=== PATIENT | male | born 1950 | race Caucasian/White ===

== ENCOUNTER 2019-06-29 09:08 | Outpatient (CLI) | payer MEDICARE, SELFPAY ==
[2019-06-29 09:59] LABS: Alanine Aminotransferase 94 U/L (4-50); Alkaline Phosphatase 52 U/L (38-126); Aspartate Amino Transferase 87 U/L (17-59); Bilirubin,Total 1.1 mg/dL (0.2-1.3); Blood Urea Nitrogen 16 mg/dL (9-20); Calcium 9.2 mg/dL (8.4-10.2); Carbon Dioxide 31 mmol/L (22-30); Chloride 99 mmol/L (98-107); Estimated Glomerular Filt Rate > 60; Glucose 308 mg/dL (75-110); Sodium 136 mmol/L (137-145)
== END 2019-06-29 09:09 | disposition home or self-care (01) ==
LOC: ANHLAB 09:12
PROVIDERS: PCP Internal Medicine; Visit Provider Internal Medicine Cardiovascular Disease
DX: E11.9 Type 2 diabetes mellitus without complications (principal); E78.5 Hyperlipidemia, unspecified
CPT/HCPCS: 36415; 80053; 83036

== ENCOUNTER 2019-11-22 06:52 | Outpatient (NON) | payer MEDICARE, SELFPAY ==
[2019-11-22 23:09] LABS: SARS-CoV-2 RNA PCR Negative
== END 2019-11-22 06:53 ==
PROVIDERS: PCP Internal Medicine; Visit Provider Internal Medicine
DX: Z20.828 Contact with and (suspected) exposure to other viral communicable diseases (principal); R05 Cough; R50.9 Fever, unspecified
CPT/HCPCS: 87635; C9803; U0003